=== PATIENT | male | born 1990 | race Caucasian/White ===

== ENCOUNTER 2019-03-23 20:07 | Emergency (ER) | payer OTHER ==
[~2019-03-23] VITALS: Ht 172.7 cm; Wt 81.6 kg
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
[2019-03-23] MEDS ORDERED: TDAP [DIPH/PERTUSSIS/TET] 0.5 ML VIAL IM ONE ×2 (21:00→21:01)
[2019-03-23] MEDS ORDERED: HYDROCODONE/APAP 10/325MG 1 EA TABLET PO ONE (21:00)
[2019-03-23] MEDS ORDERED: ONDANSETRON 4 MG TAB.RAPDIS SL ONE (21:00)
[2019-03-23] MEDS ORDERED: ONDANSETRON 4 MG TAB.RAPDIS ONE (21:01)
[2019-03-23] MEDS ORDERED: HYDROCODONE/APAP 10/325MG 1 EA TABLET ONE (21:01)
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
[2019-03-23] MEDS ORDERED: IBUPROFEN 600 MG TABLET PO ONE (23:00)
[2019-03-23 23:09] VITALS: BP 121/74
== END 2019-03-23 23:09 | disposition home or self-care (01) ==
LOC: ER 20:10
DX: S06.0X0A Concussion without loss of consciousness, initial encounter (principal); S05.12XA Contusion of eyeball and orbital tissues, left eye, initial encounter; S50.311A Abrasion of right elbow, initial encounter; S30.810A Abrasion of lower back and pelvis, initial encounter; H11.32 Conjunctival hemorrhage, left eye; R11.2 Nausea with vomiting, unspecified; Z60.2 Problems related to living alone; Y04.0XXA Assault by unarmed brawl or fight, initial encounter; Y93.89 Activity, other specified; Y92.89 Other specified places as the place of occurrence of the external cause; Y99.8 Other external cause status
CPT/HCPCS: 70450; 70486; 90471; 90715; 99284; A6403; Q0162

== ENCOUNTER 2019-03-29 13:28 | Emergency (ER) | payer OTHER ==
[~2019-03-29] VITALS: Ht 172.7 cm; Wt 74.8 kg
[2019-03-29 13:42] VITALS: BP 130/82
== END 2019-03-29 14:35 | disposition home or self-care (01) ==
LOC: ER 13:29
DX: S00.33XA Contusion of nose, initial encounter (principal); H11.32 Conjunctival hemorrhage, left eye; J00 Acute nasopharyngitis [common cold]; Z60.2 Problems related to living alone; W22.8XXA Striking against or struck by other objects, initial encounter; Y93.89 Activity, other specified; Y92.89 Other specified places as the place of occurrence of the external cause; Y99.8 Other external cause status

== ENCOUNTER 2020-11-11 15:36 | Emergency (ER) | payer OTHER ==
[~2020-11-11] VITALS: Ht 176.5 cm; Wt 85.7 kg
--- NOTE | 2020-11-11 16:01 | NUR ---
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
[2020-11-11] MEDS ORDERED: DEXA4TAB PO (16:15)
[2020-11-11] MEDS ORDERED: IVER3TAB2 PO (16:15)
[2020-11-11] MEDS ORDERED: DEXAMETHASONE 4 MG TABLET ONE ×2 (16:19→16:25)
[2020-11-11] MEDS ORDERED: IBUPROFEN 600 MG TABLET ONE ×2 (16:20→16:25)
[2020-11-11 16:30] VITALS: BP 133/89
[2020-11-11] MEDS ORDERED: IBUPROFEN 600 MG TABLET PO ONE (16:30)
[2020-11-11] MEDS ORDERED: DEXAMETHASONE SOLN 5 MG/5 ML UDC PO ONE (16:30)
--- NOTE | 2020-11-11 16:30 | NUR ---
Patient discharged to home in stable condition. Written and verbal after care instructions given. Patient verbalizes understanding of instruction.
== END 2020-11-11 16:30 | disposition home or self-care (01) ==
LOC: ER 15:36
DX: U07.1 COVID-19 (principal); F17.200 Nicotine dependence, unspecified, uncomplicated; Z60.2 Problems related to living alone
CPT/HCPCS: 99283; J8540